=== PATIENT | male | born 1980 | race Caucasian/White ===

== ENCOUNTER 2016-10-25 13:04 | Emergency (ER) | payer BC, OTHER ==
[2016-10-25] MEDS ORDERED: Cyclobenzaprine TAB* 10 MG PO ONE (15:36)
[2016-10-25] MEDS ORDERED: Methocarbamol TAB* 500 MG PO ONE (15:54)
[2016-10-25] MEDS ORDERED: tiZANidine TAB* 2 MG PO ONE (15:55)
--- NOTE | 2016-10-25 16:40 | ED ---
Neck Pain - HPI Summary HPI Summary: Patient presents to the ED with CC of neck pain x 7 days with no known injury. He states the neck feels like its "unhinged" and he is unable to have full ROM and unable to flex or extend the neck. He feels weak in the neck like something is detached. Denies radiation of symptoms. He notes to 8/10 pain, but more concerned as if something is loose. Denies weakness in the legs, bowel or bladder dysfunction. Denies DC. Endorses visual disturbances just today, but denies previous visual disturbances throughout the week. He has been taking ibuprofen with relief of pain, but not with relief of the feeling of "looseness." He has been seen by a chiropractor 7 x this week. Denies any other symptoms and denies health problems. - History of Current Complaint Chief Complaint: EDNeckComplaint Stated Complaint: NECK/BACK PAIN Time Seen by Provider: 10/25/16 14:08 Hx Obtained From: Patient Onset/Duration Of Injury/Symptoms: Days Mechanism Of Injury: No Known Trauma Timing: Constant Onset/Duration: Sudden Onset Severity Initially: Moderate Severity Currently: Moderate Pain Intensity: 6 Pain Scale Used: 0-10 Numeric Location: Discrete At: - posterior midline neck without radiation Aggravating Factors: Position, Movement Alleviating Factors: Nothing, OTC Meds Associated Signs & Symptoms: Negative: Redness, Fever, Nuchal Rigity, Weakness, Headache, Paresthesia - Risk Factors Meningitis Risk Factors: Negative Risk Factors For Cervical Spine Injury: Posterior Midline Cervical Spine Tenderness - Allergies/Home Medications Allergies/Adverse Reactions: Allergies Allergy/AdvReac Type Severity Reaction Status Date / Time No Known Allergies Allergy Verified 02/16/12 21:01 PMH/Surg Hx/FS Hx/Imm Hx Previously Healthy: Yes Endocrine/Hematology History: Denies: Hx Diabetes, Hx Thyroid Disease Cardiovascular History: Denies: Hx Hypertension Respiratory History: Denies: Hx Asthma, Hx Chronic Obstructive Pulmonary Disease (COPD) GI History: Denies: Hx Ulcer - Surgical History Surgery Procedure, Year, and Place: Right ankle ganglion cyst removal 2010. - Immunization History Hx Pertussis Vaccination: No Immunizations Up to Date: Unable to Obtain/Confirm Infectious Disease History: No Infectious Disease History: Denies: Hx Hepatitis, Hx Human Immunodeficiency Virus (HIV), Traveled Outside the [place] in Last 30 Days - Social History Occupation: Employed Full-time Lives: With Family Alcohol Use: None Hx Substance Use: No Substance Use Type: Reports: None Hx Tobacco Use: No Smoking Status (MU): Never Smoked Tobacco Do You Chew or Dip Tobacco: No Have You Chewed or Dipped Tobacco in the LAST YEAR: No Review of Systems Constitutional: Negative Negative: Fever, Fatigue Positive: Blurred Vision. Negative: Photophobia, Diplopia ENT: Negative Cardiovascular: Negative Genitourinary: Negative Positive: no symptoms reported, see HPI Positive: Arthralgia - posterior midline cervical tenderness Skin: Negative Negative: Headache, Weakness, Paresthesia Psychological: Normal All Other Systems Reviewed And Are Negative: Yes Physical Exam Triage Information Reviewed: Yes Vital Signs On Initial Exam: Initial Vitals Temp Pulse Resp BP Pulse Ox 97.6 F 75 20 135/75 99 10/25/16 13:41 10/25/16 13:41 10/25/16 13:41 10/25/16 13:41 10/25/16 13:41 Vital Signs Reviewed: Yes Appearance: Positive: Well-Appearing, Well-Nourished Skin: Positive: Warm, Skin Color Reflects Adequate Perfusion Head/Face: Positive: Normal Head/Face Inspection Eyes: Positive: EOMI, FREDIS, Conjunctiva Clear Neck: Positive: Supple, Tenderness @ - midline tenderness. Negative: Nuchal Rigidity Respiratory/Lung Sounds: Positive: Clear to Auscultation, Breath Sounds Present Cardiovascular: Positive: Normal, RRR, Pulses are Symmetrical in both Upper and Lower Extremities Musculoskeletal: Positive: Pain @ - midline cervical tenderness Neurological: Positive: Sensory/Motor Intact, Alert, Oriented to Person Place, Time, Normal Gait, Facial Symmetry, Speech Normal. Negative: Disoriented Psychiatric: Positive: Normal AVPU Assessment: Alert - Ana Coma Scale Best Eye Response: 4 - Spontaneous Best Motor Response: 6 - Obeys Commands Best Verbal Response: 5 - Oriented Diagnostics - Vital Signs Vital Signs Temp Pulse Resp BP Pulse Ox 10/25/16 14:53 97.6 F 75 20 135/75 97 10/25/16 13:41 97.6 F 75 20 135/75 99 - Laboratory Lab Statement: Any lab studies that have been ordered have been reviewed, and results considered in the medical decision making process. Neck Course/Dx - Course Course Of Treatment: D/t posterior cervical midline tenderness and feeling "weak " in the neck and unable to rotate the neck or flex and extend - patient is sent to CT. Offered Flexeril but patient refused for unpleasant side effects, prefers other medication. Given Tizanidine with some relief - still feels something is unhinged in the neck. Feeling light headed and irritable from the side effects of Tizanidine and is now requesting flexeril instead. Ct shows no acute findings or fracture. Patient made aware and is encouraged to rest, use moist heat to the area. - Diagnoses Differential Dx/HQI/PQRI: Positive: Cervical Fracture, Sprain, Strain, Torticollis Provider Diagnoses: Cervical strain Discharge - Discharge Plan Condition: Stable Disposition: HOME Prescriptions: Cyclobenzaprine TAB* [Flexeril TAB*] 10 mg PO BID PRN #10 tab PRN Reason: Pain Patient Education Materials: Cervical Strain (ED) Referrals: No Primary Care Phys,NOPCP [Primary Care Provider] - Additional Instructions: Follow up with your PCP for any worsening symptoms Ibuprofen 600mg three times daily for pain and inflammation Moist heat to the area several times per day Tizanidine up to 3 times daily only as needed for muscle spasms/pain
--- NOTE | 2016-10-25 16:51 | RAD ---
Indication: 7 days of neck pain. CT of the cervical spine was obtained in the axial plane. Sagittal and coronal reconstructed images were obtained. The skull base demonstrates no fracture. Mastoid air cells are well aerated. The lateral axial joint demonstrates degenerative changes. No fracture is noted. The vertebral bodies appear normal in height. No fracture is identified. No focal protrusion is noted. No central or foraminal stenosis is noted. Spinal canal is unremarkable. IMPRESSION: STRAIGHTENING OF THE NORMAL LORDOSIS. NO FRACTURE IS IDENTIFIED.
[2016-10-25 17:23] VITALS: BP 131/80
== END 2016-10-25 17:24 | disposition home or self-care (01) ==
LOC: ED 13:04
DX: S13.4XXA Sprain of ligaments of cervical spine, initial encounter (principal); X58.XXXA Exposure to other specified factors, initial encounter; Y92.9 Unspecified place or not applicable
CPT/HCPCS: 72125; 99282; A9270-GY